=== PATIENT | female | born 1970 | race Caucasian/White ===

== ENCOUNTER 2016-12-15 16:40 | Emergency (ER) | payer OTHER ==
--- NOTE | 2016-12-15 17:21 | EDPHY ---
H & P Time Seen by Provider: 12/15/16 16:58 HPI/ROS: HPI Right foot injury. 46-year-old female by private vehicle with her . This patient reports that just prior to arrival she was coming down some steps and see twisted/ inverted her right foot after she tripped. She complains of isolated pain to the lateral aspect of the right mid foot. No ankle pain. She reports that she heard a pop in this area when she inverted the foot. Denies any other extremity pain. She did not hit her head. No neck pain. No other complaints. ROS: Constitutional: No fever, no chills. No weakness. Musculoskeletal: No back pain. No neck pain. As above. Skin: No rashes. No lacerations or abrasions. Neurological: No headache. No focal weakness or altered sensation. Past medical history: Hypothyroidism, sinus surgery. Social history: Nonsmoker. No alcohol. Here with her . Physical Exam: General Appearance: Alert, no distress. This patient is responding to questions appropriately and in full sentences. This patient appears well- hydrated and well-nourished. Eyes: Pupils equal and round no pallor or injection. No lid edema, erythema or injection. Right foot and ankle exam: She has a tender mildly ecchymotic swelling about the size of a quarter mid lateral right foot. There is some tenderness on palpation over the base of the 5th metatarsal. No swelling or ecchymosis over this area. The remaining bony aspects of the foot are nontender on palpation and unremarkable on gross inspection. No tenderness on palpation of the medial and lateral malleolus. The proximal fibula is nontender on palpation. The right foot is neurovascularly intact. Neurological: Motor sensory function is grossly intact. Cranial nerves are normal. Skin: Warm and dry, no rashes. Extremities are symmetrical except noted. All joints range without pain or impingement except noted. Psychiatric: No agitation. No depression. Database: EKG: Imaging: Right foot x-ray series: Campbell fracture with comminution. Interpreted by me. Procedures: Emergency department course: Vital signs reviewed and are normal. Patient took ibuprofen just prior to arrival. She declines further pain medication. 5:35 p.m., Dr. Lay of the Orthopedic service paged. 5:40 p.m., discussed results of x-rays and injury with patient. Her foot will be immobilized in an orthopedic boot. She will be provided with crutches and nonweightbearing. Plan is to have her then follow up with Dr. Lay or 1 of his partners for further management. 6:00 p.m., spoke with Dr. Lay of the Orthopedic service. He agrees with above management. He will see this patient on Thursday in his clinic. 6:05 p.m., patient resting comfortably. Foot immobilize an orthopedic boot. She has had instruction on crutch usage. I discussed follow-up with Dr. Lay on Thursday. Return to emergency department precautions reviewed. All of her questions were answered. She was discharged in good condition. Differential Diagnosis: The differential diagnosis on this patient includes but is not limited to fracture, subluxation, dislocation, sprain of the right foot. This represents a partial list of diagnoses considered. These considerations are based on history, physical exam, past history, reassessment and diagnostic testing. Smoking Status: Never smoked Constitutional: Initial Vital Signs Temperature (C) 36.6 C 12/15/16 16:55 Heart Rate 75 12/15/16 16:55 Respiratory Rate 16 12/15/16 16:55 Blood Pressure 108/76 12/15/16 16:55 O2 Sat (%) 95 12/15/16 16:55 O2 Delivery Mode Room Air Allergies/Adverse Reactions: unknown antibiotic Allergy (Uncoded 12/15/16 17:00) Home Medications: Medication Instructions Recorded LEVOTHYROXINE SODIUM [Tirosint 07/11/15 50mcg] Medical Decision Making - Diagnostics Imaging Results: Imaging Impressions Foot X-Ray 12/15/16 17:01 Impression: Fifth metatarsal fracture. Departure - Departure Disposition: Home, Routine, Self-Care Clinical Impression: Right foot injury, Campbell fracture Condition: Good Instructions: Hydrocodone/Acetaminophen (By mouth), Foot Fracture in Adults (ED ) Additional Instructions: Read and follow provided instructions. Follow-up with Dr. Lay of the Orthopedic service on Thursday of this week for re-evaluation and further management as discussed. Call his office tomorrow for appointment time. Keep your foot immobilized in the orthopedic boot we provided you. Your to be nonweightbearing to your right foot until cleared by Orthopedics. Ibuprofen dosin mg every 6 hours with meals for the next 3 days only. [place]/Percocet dosin-2 every 4-[address] not drive on this medication. Return to the emergency department for worsening pain, swelling, discoloration of your foot, loss of sensation or other serious concerns. Referrals: Mag Lay MD [Medical Doctor] - As per Instructions
[2016-12-15] MEDS ORDERED: HYDROCOD/APAP 5/325 PREPACK#6 BTL TAKEHOME ONE (17:45)
[2016-12-15 18:49] VITALS: BP 111/86; PULSE 62; RESP 18; TEMP 98.2; O2SAT 93
== END 2016-12-15 18:49 | disposition home or self-care (01) ==
LOC: CED 16:40
DX: S92.351A Displaced fracture of fifth metatarsal bone, right foot, initial encounter for closed fracture (principal); W18.40XA Slipping, tripping and stumbling without falling, unspecified, initial encounter
CPT/HCPCS: 73630-PO; L4386